=== PATIENT | female | born 1955 | race Caucasian/White ===

== ENCOUNTER 2022-12-27 10:54 | Outpatient (CLI) | payer MEDICARE, SELFPAY ==
--- NOTE | ~2022-12-27 | CT_ITS ---
CT Scan of the Chest without Contrast: Clinical Indication: Lung nodules Technique: Contiguous sections were acquired throughout the chest without intravenous contrast. Dose reduction technique was used on this scan by utilizing automated exposure control and iterative recon struction technique. The dose-length product (DLP) was 123.06 mGy-cm. COMPARISON: 09/09/2022 Findings: There is no evidence of any significant mediastinal, hilar or axillary lymphadenopathy. The mediastin al soft tissues appear normal. There is no evidence of pleural or pericardial effusion. Stable pleural-based nodules with coarse central calcifications at the posterior aspect of the right upper lobe/right lung apex. Images through the upper abdomen reveal no abnormalities. Impression: Stable pleural-based, coarsely calcified nodules along the posterior aspect of the right upper lobe/r ight lung apex. These have an overall benign appearance. Reviewed, dictated and finalized at [facility]. Impression: Stable pleural-based, coarsely calcified nodules along the posterior aspect of the right upper lobe/right lung apex. These have an overall benign appearance.
== END 2022-12-27 10:55 | disposition home or self-care (01) ==
PROVIDERS: PCP Nurse Practitioner Family; Visit Provider Internal Medicine Pulmonary Disease
DX: R91.8 Other nonspecific abnormal finding of lung field (principal)
CPT/HCPCS: 71250